=== PATIENT | female | born 1950 | race Caucasian/White ===

== ENCOUNTER → 2016-06-18 | Outpatient (CLI) | payer OTHER ==
--- NOTE | 2016-06-18 17:37 | MA ---
Screening Digital Mammogram With iCAD Analysis Clinical Indications: Routine screening. Technique: Standard cephalocaudal projections are obtained. Digital breast tomosynthesis was performe d in the MLO projection with reconstruction at 1.0 mm slice thickness and composite MLO views reconst ructed. This examination is processed by the iCAD computer aided detection system. Comparison: July 2013, May 2012, December 2009. Breast density: Type D: Extremely dense. Findings: CAD was reviewed. No masses, suspicious calcifications or secondary signs of malignancy are seen. There has been no significant change in the appearance of either breast. Impression: Negative mammogram. BI-RADS 1. Recommendation: Routine mammographic screening in one year as long as physical examination is negativ e in this patient with extremely dense breast parenchyma. [facility] will send a result letter to the patient. Negative mammography should not preclude additional workup of a clinically suspicious finding. The patient's information is entered into a reminder system with a target due date for her next mammo gram.
== END ==
LOC: FIMAGING 15:46
DX: Z12.31 Encounter for screening mammogram for malignant neoplasm of breast (principal)
CPT/HCPCS: G0202

== ENCOUNTER → 2018-10-09 | Outpatient (CLI) | payer OTHER | LOC: FIMAGING 12:58 | PROVIDERS: ATTEND Internal Medicine | DX: N63.21 Unspecified lump in the left breast, upper outer quadrant (principal) ==